=== PATIENT | female | born 1990 | race Caucasian/White ===

== ENCOUNTER 2024-03-30 01:16 | Day surgery (SDC) | payer OTHER, SELFPAY ==
[2024-03-17 09:28] VITALS: BMI 48.0
--- NOTE | 2024-03-17 09:53 | PC.NURSE ---
Report to the Outpatient Waiting Room, entrance under the green pavilion located off [facility], at 0630 on 03-30-24. Planned Procedure Time: 0830. Time changes happen often and if your time is changed the preop area will call you the afternoon before. - You and your visitor will be asked to self-screen and do not enter if you have any COVID symptoms. - A mask is optional within the hospital at this time. Patients may have clear liquids (water, carbonated beverages, clear teas, apple juice) until 3 hours prior to surgery with a maximum of 20 ounces. 0530 - No food from midnight until time of surgery - Infants may have breast milk until 4 hours before surgery, formula 6 hours prior to surgery. - Children will be allowed to drink immediately following surgery. If applicable, please bring a bottle or sippy cup to assist with drinking. Juice, water, soda, and popsicles are readily available. For infants on formula, please bring formula the day of surgery. Pacifiers are allowed. Take the following medications with a SIP of water the morning of surgery: None DO NOT STOP ANY OF YOUR OTHER PRESCRIPTION MEDICATIONS PRIOR TO SURGERY ?EXCEPT THE FOLLOWING Medications to discontinue per physician: vitamins and supplements Date to take last dose: 03-27-24 Please no make-up, nail turkmen, hairspray, perfume, deodorant, or body powder the day of surgery. No jewelry (including any body piercings) or valuables the day of surgery, leave them at home. Please take a shower or bath the night before, or the morning of, surgery with an antibacterial soap. Wear comfortable, loose fitting clothing. Children are encouraged to wear pajamas. - Jewelry must be removed prior to entering the operating room. Rings and piercings that are not removed may be cut off. - The hospital will not accept responsibility for valuables. - Please leave all valuables, including medications, at home the day of surgery. If you are going home after surgery, a licensed compressed air pile driver operator must drive you home. - NO public transportation without another adult if you receive anesthesia. - We recommend that an adult stay with you for 24 hours following discharge. - We also recommend that you do not drive, make important decision, drink alcoholic beverages, or take any drugs that were not prescribed by your health care provider for at least 24 hours after your discharge time. For Pediatric surgeries, we recommend two adults accompany the child home. Follow any additional instructions given to you from your surgeon. If you or anyone in your household have experienced Covid symptoms in the past week, please notify your surgeon or the nurse liaison at the phone number below for possible testing. Telephone instructions given to Julien Thompson and asked if any additional questions and then verbalized understanding. Patient advised to call surgeon office or pre surgery nurse liaison [phone] if any additional questions.
--- NOTE | 2024-03-29 23:29 | P.HP_ITS ---
H&P: HPI History of Present Illness Date/Time: 03/29/24 23:29 Chief Complaint: menorrhagia and infertility Narrative: Patient is a 34 year old G0 who presents for hysteroscopy and polypectomy indicated for menorrhagia and primary infertility. She has been trying to conceive x10 years without success. Pelvic US demonstrated a vascularity measuring 1.6cm in the upper endometrium, possible polyp vs fibroid. We di scussed expectant vs surgical management of this finding, including r/b of each. She elects to proceed with hysteroscopy and polypectomy. Review of Systems Review of Systems: All systems reviewed & are unremarkable except as noted in HPI and below [facility] Social History Social History Smoking status: Never smoker Second hand tobacco smoke exposure: No Alcohol intake: current Alcohol use details: Sometimes Substance use: never Substance use type: does not use Living arrangements: with family Spiritual care concerns: No Meds Home Medications and Allergies Home Medications Medication Instructions Recorded Confirmed Type multivit with minerals-iron 18 1 tablet PO DAILY 03/17/24 03/17/24 History mg-folic ac 400 mcg-vit K 25 mcg tablet (Adults Multivitamin) Allergies Allergy/AdvReac Type Severity Reaction Status Date / Time chris cherries Allergy Severe Swelling Uncoded 03/17/24 09:26 of Lip/Tongue/Throat Exam Const: General: comfortable and no acute distress HENMT: Mouth: Yes moist mucous membranes Eyes: General: appearance normal, both eyes and all related structures Resp: Effort & Inspection: normal respiratory effort Skin: General skin exam: normal color Extrem: General: normal to inspection Psych: Mental Status: mental status grossly normal Assessment and Plan Assessment and plan (1) Endometrial polyp: Code(s): N84.0 - Polyp of corpus uteri Status: Acute Assessment and Plan: - 1.6cm vascular focus found in upper endometrium on pelvic US - discussed that this could be the cause of both menorrhagia and infertility - discussed r/b of expectant vs surgical management; patient desires to proceed with hysteroscopy and polypectomy
[2024-03-30 06:41] VITALS: BP 153/80; PULSE 77; RESP 16; TEMP 36.6; O2SAT 98; BMI 48.4
[2024-03-30] MEDS: LACTATED RINGERS 1,000 ML 30 ML IV CONT (07:10)
[2024-03-30] MEDS: ACETAMINOPHEN 500 MG TABLET 1000 MG PO (07:18)
--- NOTE | 2024-03-30 07:27 | WPDHPUPDATE1 ---
History and Physical Update Update Date/Time: 03/30/24 07:27 History and Physical has been reviewed, including an updated exam of the patient. There are NO changes in the patient's condition. Risks, benefits, and alternatives have been discussed and questions answered. Patient agrees to proceed with procedure.
--- NOTE | 2024-03-30 08:19 | P.PNAN_ITS ---
Anes - Initial Pre Proc Eval Procedure: Operation Date: 03/30/24 08:30 Proposed Procedures p Hysteroscopy with Biopsy of Endometrium and/or Polypectomy - Rafy Pillai MD Date/Time: 03/30/24 08:19 Surgeon: Rafy Pillai MD Pre Op Diagnosis: Endometrial Polyp Patient Data Age: 34 Gender: F Height: 1.63 m Weight: 128.1 kg Last Vital Signs Temp 97.9 F 03/30/24 06:41 Pulse 77 03/30/24 06:41 Resp 16 03/30/24 06:41 BP 153/80 H 03/30/24 06:41 Pulse Ox 98 03/30/24 06:41 O2 Del Method Room Air 03/30/24 06:41 Allergies Allergy/AdvReac Type Severity Reaction Status Date / Time chris cherries Allergy Severe Swelling Uncoded 03/30/24 06:55 of Lip/Tongue/Throat Home Medications Medication Instructions Recorded Confirmed Type multivit with minerals-iron 18 1 tablet PO DAILY 03/17/24 03/30/24 History mg-folic ac 400 mcg-vit K 25 mcg tablet (Adults Multivitamin) Patient hx anesthesia problems: none Family hx anesthesia problems: none Results Review: All pre-operative results and documents have been reviewed as part of the pre- operative evaluation. [facility] Social History Social History Smoking status: Never smoker Second hand tobacco smoke exposure: No Alcohol intake: current Alcohol use details: Sometimes Substance use: never Substance use type: does not use Living arrangements: with family Spiritual care concerns: No Anes - Eval Final PreProcedure Day of Procedure 03/30/24 08:19 Patient weight: morbidly obese Heart: regular rate and rhythm Lungs: clear to auscultation Airway: Mallampati scale class II Neurological: alert and oriented Last oral intake: >/= 8 hours ASA classification: II Emergent: no Anesthetic plan: proceed Anesthesia type and monitoring: general GIVS and standard monitoring Results Review: All pre-operative results and documents have been reviewed as part of the pre- operative evaluation. Informed Consent: The patient's anesthetic plan and its attendant risks and benefits were discussed with the patient/family/POA. Questions were solicited and answers provided to the satisfaction of the patient/family/POA.
[2024-03-30] MEDS: LIDO 1%/EPINEPHRINE/PF 1:200,000 30 ML VIAL 10 ML XX (08:25)
--- NOTE | 2024-03-30 08:25 | W.PM.PROC2 ---
Procedure Note - Detailed Date of Procedure 03/30/24 Pre-op Diagnosis Endometrial Polyp Post-op Diagnosis Same Procedure Performed hysteroscopy, polypectomy Surgeon Rafy Pillai MD Anesthesia MAC Findings broad based polyp on anterior wall of endometrial cavity, overall fluffy endometrium; normal appearing tubal ostia bilaterally Description of Procedure The patient was taken to the operating room with IVFs running. She was placed into the dorsal supine position where she received MAC without any difficulty. The patient was placed in the dorsal lithotomy position using Wilfrido stirrups. EUA revealed findings as above. She was then prepped and draped in a normal sterile fashion. A time-out procedure was performed and all members of the OR team agreed on the patient and plan. A bivalve speculum was then inserted into the patient's vagina. The anterior lip of the cervix was grasped with a single tooth tenaculum. The uterus was gently sounded to 9 cm. The hysteroscope was then inserted into the uterine cavity using saline as the distension media and revealed the above findings. Both ostia were identified and pictures were taken. At this point, the morcellator was then introduced into the hysteroscope and calibrated. The tip of the morcellator was then applied to the poolyp and activated. The polyp was removed to its base. At the end of the procedure, the uterine cavity was clear of all pathology. The fluid deficit was 650 cc. The specimen was sent for pathology. The hysteroscope and tenaculum were removed. The speculum was then reintroduced into the vagina and the anterior lip of the cervix was hemostatic. The speculum was then removed. The patient tolerated the procedure well. Sponge, lap, and instrument counts were correct X2. The patient was taken out of the dorsal lithotomy position and was awakened from anesthesia. She was taken to the recovery room in stable condition. Estimated Blood Loss 10 Pathology Yes Complications No immediate complications Condition Stable Disposition Same day
[2024-03-30] MEDS: KETOROLAC 30 MG/ML VIAL (*BKC) IV PUSH (08:37)
[2024-03-30 08:52] VITALS: BP 123/77; PULSE 99; RESP 14; O2SAT 94
[2024-03-30] MEDS: oxyCODONE HCL (*CRX) 5 MG TAB IR PO (09:15)
[2024-03-30 09:20] VITALS: BP 136/80; PULSE 83; RESP 16
[2024-03-30 09:50] VITALS: BP 132/87; PULSE 65; RESP 16
== END 2024-03-30 10:09 | disposition home or self-care (01) ==
PROVIDERS: Visit Provider Obstetrics & Gynecology
PROC: 0U5B8ZZ Destruction of Endometrium, Via Natural or Artificial Opening Endoscopic (ICD-10-PCS; CPT 58563; principal; 2024-03-30 08:30)
DX: N84.0 Polyp of corpus uteri (principal); E66.01 Morbid (severe) obesity due to excess calories; Z68.42 Body mass index [BMI] 45.0-49.9, adult
CPT/HCPCS: 58558; 88305; A9270; J1100; J1885; J2250; J2405; J2704; J3010; J7030; J7120